=== PATIENT | male | born 1980 | race Two or more races ===

== ENCOUNTER 2019-06-30 02:43 | Emergency (ER) | payer SELFPAY ==
[~2019-06-30] VITALS: Ht 175.3 cm; Wt 70.3 kg
[2019-06-30 02:43] VITALS: BP 125/95
--- NOTE | 2019-06-30 03:21 | NUR ---
Patient discharged to home in stable condition. Written and verbal after care instructions given. Patient verbalizes understanding of instruction.
== END 2019-06-30 03:21 | disposition home or self-care (01) ==
LOC: ER 02:47
DX: L73.9 Follicular disorder, unspecified (principal); K21.9 Gastro-esophageal reflux disease without esophagitis; M41.9 Scoliosis, unspecified